=== PATIENT | female | born 1970 | race Caucasian/White ===

== ENCOUNTER 2017-01-26 00:36 | Emergency (ER) | payer BC ==
[2017-01-26] MEDS ORDERED: FAMOTIDINE IV 20 MG/2 ML VIAL IVP ONE (00:52)
[2017-01-26] MEDS ORDERED: ALBUTEROL SULFATE (0.083%) 2.5 MG/3 ML NEB INH ONE (00:52)
[2017-01-26] MEDS ORDERED: METHYLPREDNISOLONE PF 125MG/VIAL IVP ONE (00:52)
[2017-01-26] MEDS ORDERED: DIPHENHYDRAMINE HCL IV 50 MG/ML VIAL IVP ONE (00:52)
[2017-01-26] MEDS ORDERED: EPINEPHRINE 1 MG/ML AMPUL IM ONE ×2 (00:52→01:03)
--- NOTE | 2017-01-26 00:54 | Emergency Department Record ---
History of Present Illness - General Chief complaint: Allergic Reaction Stated complaint: ALLERGIC REACTION Time Seen by Provider: 01/26/17 00:49 Source: Patient Mode of Arrival: Ambulatory Limitations: No limitations - History of Present Illness Initial Comments: pt ate cashews and is having anaphylaxis. pt took benadryl 50mg po Complaint: Allergic reaction, Hives, Facial swelling Symptoms: Facial swelling, Lip swelling, Orolingual swelling Treatment Prior to Arrival: Benadryl - Related Data Home Medications Medication Instructions Recorded Confirmed Last Taken Acetaminophen [Tylenol] 650 mg PO BID tab 09/04/16 Unknown Allergies Allergy/AdvReac Type Severity Reaction Status Date / Time simvastatin Allergy Severe increased Verified 01/26/17 00:44 liver function Sulfa (Sulfonamide Allergy Intermediate RASH Verified 01/26/17 00:44 Antibiotics) [email or web address] Allergy Severe ANAPHYLAXIS Uncoded 04/19/15 15:47 [email or web address] Allergy Severe SWELLING Uncoded 04/19/15 15:47 OF THE LIPS Review of Systems Reviewed: No additional complaints except as noted below Constitutional: Reports: As per HPI. Denies: Chills, Fever, Malaise, Night sweats, Weakness, Weight change Eyes: Reports: As per HPI. Denies: Eye discharge, Eye pain, Photophobia, Vision change ENT: Reports: As per HPI. Denies: Congestion, Dental pain, Ear pain, Epistaxis , Hearing loss, Throat pain Respiratory: Reports: As per HPI. Denies: Cough, Dyspnea, Hemoptysis, Stridor, Wheezes Cardiovascular: Reports: As per HPI. Denies: Arrhythmia, Chest pain, Dyspnea on exertion, Edema, Murmurs, Orthopnea, Palpitations, Paroxysmal nocturnal dyspnea, Rheumatic Fever, Syncope Endocrine: Reports: As per HPI. Denies: Fatigue, Heat or cold intolerance, Polydipsia, Polyuria Gastrointestinal: Reports: As per HPI. Denies: Abdominal pain, Constipation, Diarrhea, Hematemesis, Hematochezia, Melena, Nausea, Vomiting Genitourinary: Reports: As per HPI. Denies: Abnormal menses, Discharge, Dyspareunia, Dysuria, Frequency, Hematuria, Incontinence, Retention, Urgency Musculoskeletal: Reports: As per HPI. Denies: Arthralgia, Back pain, Gout, Joint swelling, Myalgia, Neck pain Skin: Reports: As per HPI. Denies: Bruising, Change in color, Change in hair/ nails, Lesions, Pruritus, Rash Neurological: Reports: As per HPI. Denies: Abnormal gait, Confusion, Headache, Numbness, Paresthesias, Seizure, Tingling, Tremors, Vertigo, Weakness Psychiatric: Reports: As per HPI. Denies: Anxiety, Auditory hallucinations, Depression, Homicidal thoughts, Suicidal thoughts, Visual hallucinations Hematological/Lymphatic: Reports: As per HPI. Denies: Anemia, Blood Clots, Easy bleeding, Easy bruising, Swollen glands Past Medical History - SOCIAL HISTORY Smoking Status: Current every day smoker - RESPIRATORY Hx Respiratory Disorders: Yes Hx Asthma: Yes - CARDIOVASCULAR Hx Cardio Disorders: Yes Hx Hypertension: Yes - NEURO Hx Neuro Disorders: Yes Hx Headaches: Yes (hx) - GI Hx GI Disorders: Yes Hx Reflux: Yes - Hx Genitourinary Disorders: No - ENDOCRINE Hx Endocrine Disorders: No - MUSCULOSKELETAL Hx Musculoskeletal Disorders: No - PSYCH Hx Psych Problems: Yes Hx Anxiety: Yes Hx Depression: Yes - HEMATOLOGY/ONCOLOGY Hx Hematology/Oncology Disorders: No Family Medical History Hx Cancer: Father, Mother Hx Heart Disease: Mother Physical Exam - General General Appearance: Alert, Oriented x3, Cooperative, Moderate distress - Head Head exam: Normal inspection - Eye Eye exam: Normal appearance, PERRL, EOMI Pupils: Normal accommodation - ENT ENT exam: Normal exam, Mucous membranes moist, Normal external ear exam, Normal orophraynx Ear exam: Normal external inspection. negative: External canal tenderness Nasal Exam: Normal inspection. negative: Discharge, Sinus tenderness Mouth exam: Tongue elevation, Tongue normal Teeth exam: Normal inspection. negative: Dental caries Throat exam: Normal inspection. negative: Tonsillar erythema, Tonsillar exudate - Neck Neck exam: Normal inspection, Full ROM. negative: Tenderness - Respiratory Respiratory exam: Normal lung sounds bilaterally. negative: Respiratory distress - Cardiovascular Cardiovascular Exam: Regular rate, Normal rhythm, Normal heart sounds - GI/Abdominal GI/Abdominal exam: Soft, Normal bowel sounds. negative: Tenderness - Rectal Rectal exam: Deferred - exam: Deferred - Extremities Extremities exam: Normal inspection, Full ROM, Normal capillary refill. negative: Tenderness - Back Back exam: Reports: Normal inspection, Full ROM. Denies: Muscle spasm, Rash noted, Tenderness - Neurological Neurological exam: Alert, CN II-XII intact, Normal gait, Oriented X3 - Psychiatric Psychiatric exam: Normal affect, Normal mood - Skin Skin exam: Dry, Intact, Normal color, Warm Disposition Disposition: Transfer Clinical Impression: Anaphylaxis Qualifiers: Encounter type: initial encounter Qualified Code(s): T78.2XXA - Anaphylactic shock, unspecified, initial encounter Disposition: Acute Care Hospital Transfer Transfer To: [facility] Reason For Transfer: anaphylaxis, angioedema Accepting Physician: dr cortez Time Discussed w/Accepting Physician: 00:55 Forms: Patient Portal Access
[2017-01-26] MEDS ORDERED: ONDANSETRON HCL IV 4 MG/2 ML VIAL IVP ONE (00:58)
--- NOTE | 2017-01-26 01:28 | Emergency Department Record ---
History of Present Illness - General Chief complaint: Allergic Reaction Stated complaint: ALLERGIC REACTION Time Seen by Provider: 01/26/17 00:49 Source: Patient Mode of Arrival: Ambulatory Limitations: No limitations - History of Present Illness Onset/Timin -: Hour(s) Exposure: Food Symptoms: Facial swelling, Lip swelling, Orolingual swelling Severity: Severe Treatment Prior to Arrival: Benadryl - Related Data Home Medications Medication Instructions Recorded Confirmed Last Taken Acetaminophen [Tylenol] 650 mg PO BID tab 09/04/16 Unknown Allergies Allergy/AdvReac Type Severity Reaction Status Date / Time simvastatin Allergy Severe increased Verified 01/26/17 00:44 liver function Sulfa (Sulfonamide Allergy Intermediate RASH Verified 01/26/17 00:44 Antibiotics) [email or web address] Allergy Severe ANAPHYLAXIS Uncoded 04/19/15 15:47 [email or web address] Allergy Severe SWELLING Uncoded 04/19/15 15:47 OF THE LIPS Travel Screening - Travel/Exposure Within Last 30 Days Have you traveled within the last 30 days?: No - Travel Symptoms Symptom Screening: None Review of Systems Constitutional: Reports: As per HPI. Denies: Chills, Fever, Malaise, Night sweats, Weakness, Weight change Eyes: Reports: As per HPI. Denies: Eye discharge, Eye pain, Photophobia, Vision change ENT: Reports: As per HPI. Denies: Congestion, Dental pain, Ear pain, Epistaxis , Hearing loss, Throat pain Respiratory: Reports: As per HPI. Denies: Cough, Dyspnea, Hemoptysis, Stridor, Wheezes Cardiovascular: Reports: As per HPI. Denies: Arrhythmia, Chest pain, Dyspnea on exertion, Edema, Murmurs, Orthopnea, Palpitations, Paroxysmal nocturnal dyspnea, Rheumatic Fever, Syncope Endocrine: Reports: As per HPI. Denies: Fatigue, Heat or cold intolerance, Polydipsia, Polyuria Gastrointestinal: Reports: As per HPI. Denies: Abdominal pain, Constipation, Diarrhea, Hematemesis, Hematochezia, Melena, Nausea, Vomiting Genitourinary: Reports: As per HPI. Denies: Abnormal menses, Discharge, Dyspareunia, Dysuria, Frequency, Hematuria, Incontinence, Retention, Urgency Musculoskeletal: Reports: As per HPI. Denies: Arthralgia, Back pain, Gout, Joint swelling, Myalgia, Neck pain Skin: Reports: As per HPI. Denies: Bruising, Change in color, Change in hair/ nails, Lesions, Pruritus, Rash Neurological: Reports: As per HPI. Denies: Abnormal gait, Confusion, Headache, Numbness, Paresthesias, Seizure, Tingling, Tremors, Vertigo, Weakness Psychiatric: Reports: As per HPI. Denies: Anxiety, Auditory hallucinations, Depression, Homicidal thoughts, Suicidal thoughts, Visual hallucinations Hematological/Lymphatic: Reports: As per HPI. Denies: Anemia, Blood Clots, Easy bleeding, Easy bruising, Swollen glands Past Medical History - SOCIAL HISTORY Smoking Status: Current every day smoker - RESPIRATORY Hx Respiratory Disorders: Yes Hx Asthma: Yes - CARDIOVASCULAR Hx Cardio Disorders: Yes Hx Hypertension: Yes - NEURO Hx Neuro Disorders: Yes Hx Headaches: Yes (hx) - GI Hx GI Disorders: Yes Hx Reflux: Yes - Hx Genitourinary Disorders: No - ENDOCRINE Hx Endocrine Disorders: No - MUSCULOSKELETAL Hx Musculoskeletal Disorders: No - PSYCH Hx Psych Problems: Yes Hx Anxiety: Yes Hx Depression: Yes - HEMATOLOGY/ONCOLOGY Hx Hematology/Oncology Disorders: No Family Medical History Hx Cancer: Father, Mother Hx Heart Disease: Mother Physical Exam - General Limitations: No limitations Course Vital Signs 01/26/17 01/26/17 00:44 01:05 Pulse Rate 100 H Pulse Rate [ 93 H Pulse Ox Probe] Respiratory 20 16 Rate Blood Pressure 96/65 Blood Pressure 128/83 [Right Arm] Pulse Ox 92 L 95 Critical Care Time Critical Care Time: Yes Total Critical Care Time: 30 Disposition Clinical Impression: Anaphylaxis Qualifiers: Encounter type: initial encounter Qualified Code(s): T78.2XXA - Anaphylactic shock, unspecified, initial encounter Disposition: Acute Care Hospital Transfer Forms: Patient Portal Access
== END 2017-01-26 01:10 | disposition short-term general hospital (02) ==
LOC: ER 00:36
DX: T78.05XA Anaphylactic reaction due to tree nuts and seeds, initial encounter (principal); R06.00 Dyspnea, unspecified; R13.10 Dysphagia, unspecified; R22.0 Localized swelling, mass and lump, head; I10 Essential (primary) hypertension; F17.200 Nicotine dependence, unspecified, uncomplicated
CPT/HCPCS: 94640; 96372; 96374; 96375; 99285; J0171; J1200; J2405; J2930; J3490; J7613

== ENCOUNTER 2018-08-26 08:49 | Emergency (ER) | payer BC ==
[2018-08-26] MEDS ORDERED: ACETAMINOPHEN 325 MG TAB PO ONE (09:04)
--- NOTE | 2018-08-26 09:16 | Emergency Department Record ---
History of Present Illness - General Chief Complaint: Cough Stated Complaint: FEVER/COUGHING/CHILLS Time Seen by Provider: 08/26/18 08:58 Source: Patient Mode of Arrival: Ambulatory Limitations: No limitations - History of Present Illness Initial Comments: The patient is here today due to not feeling well for the last 24 hours. She has had total body pain with a low grade fever, mild cough, and muscle aching. The patient was over in the [facility] for a visit due to chronic neck pain and was sent over here to the ER due to not feeling well. There she had a neg Flu test also. The patient at this time is really only complaining of pain all over. She states her cough is mild and she denies any AP, dysuria, ST, vomiting, diarrhea or chills. She does have a mild SALMERON. MD Complaint: Cough, Fever Onset/Timin -: Hour(s) Severity: Moderate Severity scale (1-10): 7 Consistency: Constant - Related Data Previous Rx's Medication Instructions Recorded Doxycycline Monohydrate [Mondoxyne 100 mg PO BID #14 capsule 08/26/18 Nl] Allergies Allergy/AdvReac Type Severity Reaction Status Date / Time simvastatin Allergy Severe increased Verified 08/26/18 09:00 liver function Sulfa (Sulfonamide Allergy Intermediate RASH Verified 08/26/18 09:00 Antibiotics) [email or web address] Allergy Severe ANAPHYLAXIS Uncoded 04/19/15 15:47 [email or web address] Allergy Severe SWELLING Uncoded 04/19/15 15:47 OF THE LIPS Travel Screening - Travel/Exposure Within Last 30 Days Have you traveled within the last 30 days?: No - Travel/Exposure Within Last Year Have you traveled outside the [place] in the last year?: No - Additonal Travel Details Have you been exposed to anyone with a communicable illness?: No Review of Systems Constitutional: Reports: Chills, Malaise. Denies: Fever Eyes: Denies: Eye discharge ENT: Denies: Congestion Respiratory: Reports: Cough. Denies: Dyspnea Cardiovascular: Denies: Arrhythmia, Chest pain Endocrine: Reports: Fatigue Gastrointestinal: Denies: Abdominal pain, Nausea Genitourinary: Denies: Dysuria Musculoskeletal: Reports: Arthralgia Skin: Denies: Bruising Past Medical History - SOCIAL HISTORY Smoking Status: Current every day smoker Alcohol Use: None Drug Use: None - RESPIRATORY Hx Respiratory Disorders: Yes Hx Asthma: Yes - CARDIOVASCULAR Hx Cardio Disorders: Yes Hx Hypertension: Yes - NEURO Hx Neuro Disorders: Yes Hx Headaches: Yes (hx) - GI Hx GI Disorders: Yes Hx Reflux: Yes - Hx Genitourinary Disorders: No - ENDOCRINE Hx Endocrine Disorders: No - MUSCULOSKELETAL Hx Musculoskeletal Disorders: No - PSYCH Hx Psych Problems: Yes Hx Anxiety: Yes Hx Depression: Yes - HEMATOLOGY/ONCOLOGY Hx Hematology/Oncology Disorders: No Family Medical History Any Significant Family History?: Yes Hx Cancer: Father, Mother Hx Heart Disease: Mother Physical Exam - General General Appearance: Alert, Oriented x3, Cooperative, No acute distress - Head Head exam: Atraumatic, Normocephalic, Normal inspection - Eye Eye exam: Normal appearance, PERRL, EOMI. negative: Conjunctival injection - ENT ENT exam: negative: TM's normal bilaterally (There are chronic changes to the TM 's bilaterally with loss of landmarks. There is a R ear tube in place.) Throat exam: Normal inspection. negative: Tonsillar erythema, Tonsillar exudate - Neck Neck exam: Normal inspection, Full ROM. negative: Meningismus (The neck is very supple.), Tenderness - Respiratory Respiratory exam: Normal lung sounds bilaterally. negative: Respiratory distress - Cardiovascular Cardiovascular Exam: Regular rate, Normal rhythm, Normal heart sounds - GI/Abdominal GI/Abdominal exam: Soft, Normal bowel sounds. negative: Tenderness - Extremities Extremities exam: Normal inspection, Full ROM, Normal capillary refill. negative: Tenderness - Neurological Neurological exam: Alert, Motor sensory deficit, Normal gait. negative: Abnormal gait - Skin Skin exam: negative: Rash Course Vital Signs 08/26/18 08:52 Temperature 98.8 F Pulse Rate 91 H Respiratory 18 Rate Blood Pressure 106/72 Pulse Ox 96 - Reevaluation(s) Reevaluation #1: The patient is doing very well at this time. She is resting comfortably and does feel mildly improved. I did discuss the lab, xray and UA results with her and the need for F/U. I did also discuss the case with the patient's PCP Brigette ([employer]) in the family practice clinic and she would like the patient on Doxycycline for her URI. 08/26/18 10:10 Medical Decision Making - Data Complexity MDM Data: Labs Ordered and/or Reviewed, X-Ray Ordered and/or Reviewed - Lab Data Result diagrams: 08/26/18 09:15 10/26/18 09:15 - Radiology Data Radiology results: Report reviewed (CXR: Neg.) Disposition Disposition: Discharge Clinical Impression: Myalgia Disposition: Home, Self-Care Condition: (2) Stable Instructions: Cold Symptoms (ED) Additional Instructions: Please drink plenty of fluids and alternate Tylenol and Motrin for body aching and fever. Please take the Doxycycline as directed. Please see your family doctor next week for recheck if not better and return to the ER for any worsening symptoms. Prescriptions: Doxycycline Monohydrate [Mondoxyne Nl] 100 mg PO BID #14 capsule Forms: Patient Portal Access Time of Disposition: 09:58 Quality - Quality Measures Quality Measures: N/A - Blood Pressure Screening View Details: Yes Does Patient Have Any of the Following: No Blood Pressure Classification: Normal BP Reading Systolic Measurement: 106 Diastolic Measurement: 72 Screening for High Blood Pressure: < Normal BP, F/U Not Required > [[id number]]
[2018-08-26 09:24] LABS: HEMATOCRIT 39.7 % (35.0-47.0); HEMOGLOBIN 13.4 gm/dl (11.6-16.0); MEAN CELL VOLUME 88.2 fl (81-97); MEAN CORPUSCULAR HEMOGLOBIN 29.8 pg (27-33); MEAN CORPUSCULAR HGB CONC 33.8 g/dl (32-36); MEAN PLATELET VOLUME 10.1 fl (7.4-10.4); PLATELET COUNT 268 K/uL (130-400); RED CELL DISTRIBUTION WIDTH 14.1 % (11.5-14.5); WHITE BLOOD COUNT W/O DIFF 13.7 K/uL (4.2-12.2)
[2018-08-26 09:26] LABS: URINE APPEARANCE SL CLOUDY; URINE BILIRUBIN NEGATIVE (NEGATIVE); URINE BLOOD NEGATIVE (NEGATIVE); URINE COLOR YELLOW; URINE KETONE NEGATIVE (NEGATIVE); URINE LEUKOCYTE ESTERASE TRACE (NEGATIVE); URINE NITRITE NEGATIVE (NEGATIVE); URINE PROTEIN NEGATIVE (NEGATIVE); URINE UROBILINOGEN 0.2 E.U./dL (0.20 - 1.00)
[2018-08-26 09:31] LABS: URINE RBC NONE SEEN (NONE SEEN)
[2018-08-26 09:32] LABS: URINE MUCUS LIGHT
[2018-08-26 09:35] LABS: BLOOD UREA NITROGEN 9 mg/dL (6-20); CREATININE 0.7 mg/dL (0.5-0.9); EST GLOMERULAR FILTRATION RATE > 60 mL/min; PLATELET ESTIMATE NORMAL (NORMAL)
[2018-08-26 09:36] LABS: TOTAL PROTEIN 6.3 g/dL (6.6-8.7)
[2018-08-26 09:38] LABS: GLUCOSE,RANDOM 127 mg/dL (74-109)
[2018-08-26 09:40] LABS: ALB/GLOB RATIO 1.5 (1.1-1.8); ALBUMIN 3.8 g/dL (4.0-5.0); ALT/SGPT 28 U/L (<33); AST/SGOT 17 U/L (10.0-35.0)
[2018-08-26 09:41] LABS: ALKALINE PHOSPHATASE 82 U/L (35-104); C-REACTIVE PROTEIN 1.07 mg/dL (<0.5)
--- NOTE | 2018-08-27 14:52 | RADIOLOGY REPORT ---
DATE: 08/26/2018. EXAM: TWO-VIEW CHEST RADIOGRAPH. HISTORY: BODY ACHES, COUGH, FEVER, AND CHILLS FOR ONE WEEK. TECHNIQUE: PA and lateral views of the chest. COMPARISON: Chest radiograph dated 05/14/2009. FINDINGS: The cardiac silhouette is within normal size limits. No definite focal pulmonary consolidation. No pleural effusion or pneumothorax. Diffuse thoracic spondylosis is noted. IMPRESSION: NO ACUTE LUNG FINDINGS JOB NUMBER: [id number] MTDD
== END 2018-08-26 10:05 | disposition home or self-care (01) ==
LOC: ER 08:49
DX: M79.10 Myalgia, unspecified site (principal); M54.2 Cervicalgia; J06.9 Acute upper respiratory infection, unspecified; R05 Cough; I10 Essential (primary) hypertension; F17.210 Nicotine dependence, cigarettes, uncomplicated
CPT/HCPCS: 71046; 80053; 81001; 85027; 86140; 99283; 99284